=== PATIENT | female | born 1980 | race Caucasian/White ===

== ENCOUNTER 2018-05-16 13:47 | Emergency (ER) | END 2018-05-16 17:00 | disposition home or self-care (01) ==

== ENCOUNTER → 2019-01-24 | Outpatient (CLI) | payer BC ==
[~2019-01-24] MED LIST: ACET500C5 PO; CEPH-443 PO; NAPR-985 PO; ONDA4TAB8 PO
== END | disposition home or self-care (01) ==
LOC: LAB 11:57 → EEVIPCON 11:57
PROVIDERS: ATTEND Internal Medicine
DX: E78.5 Hyperlipidemia, unspecified (principal); R73.03 Prediabetes; E03.9 Hypothyroidism, unspecified
CPT/HCPCS: 80053; 80061; 81001; 83036; 84436; 84443; 85025